=== PATIENT | female | born 1950 | race Caucasian/White ===

== ENCOUNTER 2020-09-22 20:30 | Emergency (ER) | payer MEDICARE, BC ==
[~2020-09-22] VITALS: Ht 149.9 cm; Wt 45.0 kg
--- NOTE | 2020-09-22 20:36 | NUR ---
PT BIB EMS FOR SYNCOPE. PER EMS SHE WAS "EATING DINNNER AND HER FRIENDS SAID IT WAS LIKE SHE FELL ASLEEP RATHER THAN PASS OUT" PT ALSO ADMITS TO ETOH AND EATING WEED BROWNIES (FIRST TIME EATING A WEED BROWNIE IN 10 YEARS). PT RESTING IN [facility]. EKG COMPLETE
[2020-09-22 20:52] LABS: BASOPHILS % (AUTO) 1 % (0-1); EOSINOPHILS % (AUTO) 1 % (1-7); LYMPHOCYTES % (AUTO) 39 % (22-44); MEAN CORPUSCULAR HEMOGLOBIN 30.4 pg (27.0-34.8); MEAN CORPUSCULAR HGB CONC 33.9 g/dL (32.4-35.8); MONOCYTES % (AUTO) 11 % (2-9); NEUTROPHILS % (AUTO) 48 % (42-75); PLATELET COUNT 290 x10^3/uL (130-400); RED BLOOD COUNT 3.68 x10^6/uL (3.82-5.3); RED CELL DISTRIBUTION WIDTH 14.4 % (9.6-15.2)
[2020-09-22] MEDS ORDERED: SODIUM CHLORIDE FLUSH 10ML SYR IVF ONE (21:00)
[2020-09-22 21:03] LABS: ALANINE AMINOTRANSFERASE 34 U/L (12-78); ALBUMIN 3.3 g/dL (3.4-5.0); ANION GAP 6 mmol/L (5-15); CHLORIDE 103 mmol/L (98-107)
[2020-09-22 21:05] LABS: ALKALINE PHOSPHATASE 54 U/L (45-117); BILIRUBIN,TOTAL 0.2 mg/dL (0.2-1.0); CREATININE 0.71 mg/dL (0.55-1.02); TOTAL PROTEIN 6.4 g/dL (6.4-8.2)
[2020-09-22 21:51] VITALS: BP 111/51
--- NOTE | 2020-09-22 21:52 | NUR ---
IV FLUIDS INFUSING AT THIS TIME. WATER PROVIDED
[2020-09-22] MEDS ORDERED: SODIUM CHLORIDE 0.9% 1,000ML IVBOLUS ONE (22:00)
== END 2020-09-22 23:16 | disposition home or self-care (01) ==
LOC: ED 21:35
DX: R41.82 Altered mental status, unspecified (principal); F12.121 Cannabis abuse with intoxication delirium; R55 Syncope and collapse; R07.89 Other chest pain
CPT/HCPCS: 36415; 70450; 71045; 80053; 85025; 93005; 96360; 99285; J7030